=== PATIENT | female | born 1965 | race Caucasian/White ===

== ENCOUNTER 2023-07-09 07:00 | Outpatient (CLI) | payer MEDICARE, OTHER ==
--- NOTE | 2023-07-09 17:18 | XRAY Report ---
PROCEDURE: Chest 2V INDICATIONS: DYSPNEA ON EXERTION TECHNIQUE: 2 views of the chest were acquired. COMPARISON: None. FINDINGS: Surgical changes and devices: None. Lungs and pleura: No consolidations, effusions, or pneumothorax. Possible 1.0 cm lucent centered [place] in the left suprahilar upper lobe region. Mediastinum: Mediastinal contours appear normal. Heart size is normal. Bones and chest wall: No suspicious bony lesions. Overlying soft tissues appear unremarkable. IMPRESSION: No acute process. Possible left upper lobe lung nodule. Correlate with prior exams and consider chest CT. Reviewed by: Gretel Pierson MD on 07/09/2023 5:17 PM PST Approved by: Gretel Pierson MD on 07/09/2023 5:17 PM PST Station ID: [id number]
== END 2023-07-09 23:59 | disposition home or self-care (01) ==
LOC: EDBD → DI.S 07:00
PROVIDERS: ATTEND Registered Nurse
DX: R06.09 Other forms of dyspnea (principal); M62.81 Muscle weakness (generalized); R53.83 Other fatigue

== ENCOUNTER 2023-07-09 08:00 | Outpatient (CLI) | payer MEDICARE | END 2023-07-09 08:01 | disposition home or self-care (01) | LOC: LAB.S 08:00 | PROVIDERS: ATTEND Registered Nurse | DX: R31.9 Hematuria, unspecified (principal); R06.09 Other forms of dyspnea; M62.81 Muscle weakness (generalized); R53.83 Other fatigue ==

== ENCOUNTER 2023-07-10 10:38 | Outpatient (CLI) | payer MEDICARE, OTHER ==
[2023-07-10 11:03] LABS: BASOPHILS % (AUTO) 0.4 %; EOSINOPHILS # (AUTO) 0.2 10^3/uL (0.0-0.7); EOSINOPHILS % (AUTO) 1.6 %; HCT - HEMATOCRIT 54.7 % (37.0-47.0); HGB - HEMOGLOBIN 18.5 g/dL (12.0-16.0); LYMPHOCYTES # (AUTO) 2.4 10^3/uL (1.5-3.5); LYMPHOCYTES % (AUTO) 21.1 %; MEAN CORPUSCULAR HGB CONC 33.8 g/dL (32.0-36.0); MEAN CORPUSCULAR VOLUME 91.8 fL (81.0-99.0); MONOCYTES # (AUTO) 0.8 10^3/uL (0.0-1.0); NEUTROPHILS # (AUTO) 7.9 10^3/uL (1.5-6.6); NEUTROPHILS % (AUTO) 69.5 %; PLT - PLATELET COUNT 246 10^3/uL (130-450); RED BLOOD COUNT 5.96 10^6/uL (4.20-5.40); WHITE BLOOD COUNT 11.3 x10^3/uL (4.8-10.8)
[2023-07-10 11:24] LABS: ALBUMIN/GLOBULIN RATIO 1.6 (1.0-2.2); ALKALINE PHOSPHATASE 74 IU/L (42-121); ALT ALANINE AMINOTRANSFERASE 20 IU/L (10-60); AST ASPARTATE AMINOTRANSFERASE 23 IU/L (10-42); BILIRUBIN,TOTAL 0.8 mg/dL (0.2-1.0); BUN - BLOOD UREA NITROGEN 34 mg/dL (6-20); CALCIUM 10.8 mg/dL (8.5-10.3); CARBON DIOXIDE - CO2 27 mmol/L (21-32); CHLORIDE 95 mmol/L (101-111); CREATININE 1.5 mg/dL (0.6-1.3); CRP - C-REACTIVE PROTEIN < 0.5 mg/dL (<0.5); GFR - MDRD 36 (>89); GLUCOSE 112 mg/dL (74-104); SODIUM 132 mmol/L (135-145); TOTAL PROTEIN 8.2 g/dL (6.4-8.9)
[2023-07-10 11:37] LABS: THYROID STIMULATING HORMONE 3.86 uIU/mL (0.34-5.60)
== END 2023-07-10 10:39 | disposition home or self-care (01) ==
LOC: LAB 10:38
PROVIDERS: ATTEND Registered Nurse
DX: R06.09 Other forms of dyspnea (principal); M62.81 Muscle weakness (generalized); R53.83 Other fatigue
CPT/HCPCS: 36415; 80053; 84443; 85025; 86140

== ENCOUNTER 2023-07-10 10:59 | Emergency (ER) | payer MEDICARE, OTHER ==
[2023-07-10 11:25] VITALS: BP 126/87; O2SAT 98
== END 2023-07-10 13:28 | disposition left against medical advice (07) ==
LOC: ED 10:59
DX: Z53.21 Procedure and treatment not carried out due to patient leaving prior to being seen by health care provider (principal)
CPT/HCPCS: 36415; 80053; 83690; 84443; 85025; 86140